=== PATIENT | female | born 1940 | race American Indian/Alaskan Native ===

== ENCOUNTER 2017-02-16 12:24 | Emergency (ER) | payer OTHER ==
[2017-02-16 12:34] VITALS: BP 143/72
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
[2017-02-16] MEDS ORDERED: FLEXERIL PO ONE (14:18)
[2017-02-16] MEDS ORDERED: FLEXERIL ONE (14:23)
== END 2017-02-16 14:37 | disposition home or self-care (01) ==
LOC: ED 12:24
DX: S16.1XXA Strain of muscle, fascia and tendon at neck level, initial encounter (principal); V43.52XA Car driver injured in collision with other type car in traffic accident, initial encounter; Y92.488 Other paved roadways as the place of occurrence of the external cause; Y93.89 Activity, other specified; Y99.8 Other external cause status
CPT/HCPCS: 99282